=== PATIENT | female | born 1970 | race Caucasian/White ===

== ENCOUNTER 2019-03-16 11:10 | Day surgery (SDC) | payer BC ==
[2019-03-12 08:33] VITALS: BMI 23.8
[~2019-03-16 11:10] MED LIST: LACTATED RINGERS 1,000 ML IV SCH; LIDOCAINE 1% 20 ML VIAL (10MG/ML) FOR IV START INTRADERMA PRN
[2019-03-16 11:50] VITALS: TEMP 98
[2019-03-16] MEDS ORDERED: ONDANSETRON 4 MG/2 ML VIAL IVP ONE (11:59)
[2019-03-16] MEDS ORDERED: ACETAMINOPHEN TAB 500 MG TAB PO ONE (12:00)
[2019-03-16] MEDS ORDERED: PROPOFOL 10 MG/ML 20 ML VIAL IV ONE (12:29)
--- NOTE | 2019-03-16 13:04 | P.PCN ---
Date of Procedure: 03/16/19 Description of Procedure: BRIEF HISTORY: Patient is a 48-year-old female presenting for outpatient colonoscopy for screening for malignant neoplasm of the colon. No prior colonoscopies reported. Denies any change in bowel habits, blood per rectum, abdominal pain or family history of colon cancer. PROCEDURE PERFORMED: Colonoscopy with polypectomy. PREOPERATIVE DIAGNOSIS: Screening for malignant neoplasm colon, no prior colonoscopies. ESTIMATED BLOOD LOSS: Minimal. IV sedation per Anesthesia. PROCEDURE: After informed consent was obtained, the patient, was brought into the endoscopy unit. IV sedation was administered by Anesthesia under continuous monitoring. Digital rectal examination was normal. Initially the pediatric colonoscope was inserted in the rectum, gradually advanced into the cecum without any difficulty. Careful examination was performed as the scope was gradually being withdrawn. Ileocecal valve and the appendiceal orifice were visualized and appeared normal. Prep was excellent. Mucosa of the cecum, ascending colon, transverse colon, descending colon, sigmoid colon, and rectum appeared normal. Moderate sigmoid diverticulosis with a fixed sigmoid/colon. Diminutive 2 mm sigmoid colon polyp removed with cold forcep polypectomy. Retroflexion was performed in the rectum and no lesions were seen. The patient tolerated the procedure well. IMPRESSION: Diminutive sigmoid polyp removed with cold forceps. Moderate sigmoid diverticulosis. Fixed colon (pediatric colonoscope used for procedure). RECOMMENDATIONS: Findings of this examination were discussed with the patient and her sister. Okay to resume diet. Okay to resume medications. A repeat pathology from polypectomy. Recommendation is for repeat colonoscopy in 5-10 years pending pathology from polypectomy.
[2019-03-16 13:22] VITALS: BP 136/86; PULSE 81; RESP 16
== END 2019-03-16 14:07 | disposition home or self-care (01) ==
LOC: ORWHC2ENDO 11:10
PROVIDERS: ATTEND Internal Medicine
DX: Z12.11 Encounter for screening for malignant neoplasm of colon (principal); K63.5 Polyp of colon; K57.30 Diverticulosis of large intestine without perforation or abscess without bleeding; Z87.891 Personal history of nicotine dependence
CPT/HCPCS: 81025; 88305; 45380; J2405; J2704